=== PATIENT | male | born 1940 | race Caucasian/White ===

== ENCOUNTER → 2017-12-17 16:49 | Outpatient (CLI) | payer MEDICARE, SELFPAY | PROVIDERS: Family Provider Internal Medicine; PCP Internal Medicine; Visit Provider Internal Medicine | DX: E78.5 Hyperlipidemia, unspecified (principal); I10 Essential (primary) hypertension; Z12.5 Encounter for screening for malignant neoplasm of prostate ==

== ENCOUNTER → 2018-03-18 14:00 | Outpatient (CLI) | payer MEDICARE, SELFPAY ==
[2018-03-18 15:01] LABS: Appearance Urine UA CLEAR; Bilirubin Urine UA NEGATIVE (NEGATIVE); Color Urine UA YELLOW; Glucose Urine UA NEGATIVE (Negative); Ketones Urine UA NEGATIVE (NEGATIVE); Leukocyte Esterase Urine UA NEGATIVE (NEGATIVE); Nitrite Urine UA NEGATIVE (Negative); Occult Blood Urine UA NEGATIVE (Negative); Protein Urine UA TRACE (Negative); Urobilinogen Urine UA 0.2 E.U./dL (0.2)
[2018-03-18 15:12] LABS: Alanine Aminotransferase 21 IU/L (21-72); Albumin 4.6 g/dL (3.5-5.0); Albumin Globulin Ratio 1.4 (1.0-2.8); Alkaline Phosphatase 45 U/L (38-126); Aspartate Aminotransferase 25 IU/L (17-59); BUN Creatinine Ratio 17.5 (6-22); Bilirubin Total 0.4 mg/dL (0.2-1.3); Blood Urea Nitrogen 35 mg/dL (9-20); Calcium 9.9 mg/dL (8.4-10.2); Carbon Dioxide 24 mmol/L (22-32); Chloride 107 mmol/L (98-107); Estimated Glomerular Filt Rate 32.7 mL/min (>60); Globulin 3.4 g/dL (1.7-4.1); Glucose 105 mg/dL (80-110); HEMOLYSIS < 15 (0-50); Potassium 4.7 mmol/L (3.4-5.1); Sodium 144 mmol/L (137-145)
[2018-03-18 15:24] LABS: Bacteria Urine Occasional (0-1); Culture Indicated Urine Cult Not Indicated; Hyaline Casts Urine 10-30/LPF; RBC Urine 0-1/HPF (0-5/HPF); Squamous Epithelial Cell Urine 0-1 /HPF; WBC Urine 0-1/HPF (0-5/HPF)
[2018-03-18 15:43] LABS: Prostate Specific Antigen Scrn 2.83 ng/mL (0.1-4.0)
== END ==
PROVIDERS: Family Provider Internal Medicine; PCP Internal Medicine; Visit Provider Internal Medicine
DX: N40.1 Benign prostatic hyperplasia with lower urinary tract symptoms (principal); N13.8 Other obstructive and reflux uropathy
CPT/HCPCS: 36415; 80053; 81001; G0103

== ENCOUNTER → 2018-04-23 12:58 | Outpatient (CLI) | payer MEDICARE, SELFPAY ==
--- NOTE | 2018-04-23 | DI.MRI.S_ITS ---
PROCEDURE: MR LUMBAR SPINE WO CON INDICATIONS: LUMBAR SPINE PAIN TECHNIQUE: Noncontrast sagittal T1 spin echo and T2 fast echo, sagittal STIR, axial T1 and T2 fast spin echo through the lumbar spine. In cases with scoliosis, additional coronal T2 fast spin echo may be performed. COMPARISON: [facility], MR, L-SPINE WITHOUT CONTRAST, 06/27/2012, 14:15. FINDINGS: Image quality: Excellent. Alignment and Curvature: Levoscoliosis of the lumbar spine. Grade 1 retrolisthesis of L1 on L2 and L4 on L5, unchanged Bone Marrow: Marrow is of normal overall signal. No acute vertebral body compression fractures. Spinal Cord: Conus medullaris terminates at the L1 level. Visualized cord demonstrates normal signal and size. Paraspinous Soft Tissues: No paravertebral masses. A large presumed T2 hyperintense right renal cyst although not entirely visualized and technically nonspecific L1-L2: Broad-based posterior disc bulge bilateral facet arthropathy. No central canal narrowing. Partial effacement of both lateral recesses although symmetric in appearance. Moderate bilateral foraminal narrowing L2-L3: No canal or lateral recess narrowing. Moderate left and mild right foraminal stenoses. No interval change L3-L4: Broad-based posterior disc bulge bilateral facet arthropathy. Ligamentum flavum hypertrophy. Moderate canal stenosis. Asymmetric partial effacement of the right lateral recess. There is also left lateral recess narrowing. Severe bilateral foraminal stenosis. No interval change L4-L5: Broad-based posterior disc bulge and bilateral facet arthropathy. Mild partial effacement of both lateral recesses. Moderate central canal narrowing. Moderate to severe right and severe left foraminal narrowing. No interval change L5-S1: Broad-based posterior disc bulge and bilateral facet disease. No central canal or lateral recess narrowing. Severe left and moderate right foraminal stenoses. No interval change IMPRESSION: Overall, no interval change since 06/27/12. Multilevel lumbar spondylosis, and levoscoliosis as before. Moderate L3-L4 and L4-L5 canal stenoses. Diffuse bilateral foraminal stenoses as outlined above. No interval change since 06/27/12. The Unchanged multilevel listhesis. Dictated by: Julio Cesar Dill M.D. on 04/23/2018 at 16:28 Approved by: Julio Cesar Dill M.D. on 04/23/2018 at 16:36
== END ==
PROVIDERS: Family Provider Internal Medicine; PCP Internal Medicine; Visit Provider Physical Medicine & Rehabilitation Pain Medicine
DX: M54.5 Low back pain (principal); M47.816 Spondylosis without myelopathy or radiculopathy, lumbar region; M47.817 Spondylosis without myelopathy or radiculopathy, lumbosacral region; M41.86 Other forms of scoliosis, lumbar region; M43.16 Spondylolisthesis, lumbar region; M48.061 Spinal stenosis, lumbar region without neurogenic claudication; M48.07 Spinal stenosis, lumbosacral region
CPT/HCPCS: 72148